=== PATIENT | female | born 1975 | race American Indian/Alaskan Native ===

== ENCOUNTER 2018-10-08 14:03 | Emergency (ER) | payer SELFPAY ==
--- NOTE | 2018-10-08 15:25 | Emergency Department Report ---
ED Recheck HPI - General Chief Complaint: High BP Stated Complaint: HIGH BLOOD PRESSURE Time Seen by Provider: 10/08/18 15:11 Source: patient Mode of arrival: Ambulatory Limitations: No Limitations - History of Present Illness Initial Comments: Ms. Garnett is a 43-year-old -[place] female who was sent to us from [facility] today for evaluation due to her blood pressure. It is reported that her blood pressure was 157/110 while they're getting a female examination. On arrival here patient's blood pressures 158/91. Patient was on HCTZ at one time which she stopped due to leg cramps. Then she was put on lisinopril which caused a severe cough so she stopped. At that point time she lost 30 pounds and had liposuction and had no further problems with her blood pressure. She has not noticed blood pressure to be high as of recently and has had no symptoms such as headache shortness of breath or chest pain. - Related Data Previous Rx's Medication Instructions Recorded Last Taken Type hydroCHLOROthiazide [HCTZ] 25 mg PO QDAY #30 tablet 10/08/18 Unknown Rx Allergies Allergy/AdvReac Type Severity Reaction Status Date / Time No Known Allergies Allergy Verified 10/08/18 14:38 ED Review of Systems ROS: Stated complaint: HIGH BLOOD PRESSURE Other details as noted in HPI Comment: All other systems reviewed and negative Constitutional: denies: chills Eyes: denies: eye pain ENT: denies: throat pain Respiratory: denies: cough, orthopnea Cardiovascular: as per HPI, other. denies: palpitations Endocrine: denies: flushing Gastrointestinal: denies: vomiting Genitourinary: denies: urgency Musculoskeletal: denies: back pain Skin: denies: rash Neurological: denies: headache Psychiatric: denies: anxiety Hematological/Lymphatic: denies: easy bleeding ED Past Medical Hx - Past Medical History Previous Medical History?: Yes (abated blood pressure without symptoms) Hx Hypertension: Yes - Surgical History Past Surgical History?: Yes Additional Surgical History: Lipo suction - Family History Family history: no significant - Social History Smoking Status: Never Smoker Substance Use Type: Marijuana - Medications Home Medications: Home Medications Medication Instructions Recorded Confirmed Last Taken Type hydroCHLOROthiazide [HCTZ] 25 mg PO QDAY #30 tablet 10/08/18 Unknown Rx ED Physical Exam - General Limitations: No Limitations General appearance: alert - Head Head exam: Present: atraumatic - Eye Eye exam: Present: normal appearance, PERRL Pupils: Present: normal accommodation - ENT ENT exam: Present: mucous membranes moist - Neck Neck exam: Present: normal inspection, full ROM - Respiratory Respiratory exam: Present: normal lung sounds bilaterally - Cardiovascular Cardiovascular Exam: Present: regular rate - GI/Abdominal GI/Abdominal exam: Present: soft, normal bowel sounds - Rectal Rectal exam: Present: deferred - Extremities Exam Extremities exam: Present: normal inspection, full ROM - Back Exam Back exam: Present: normal inspection, full ROM ED Course Vital Signs 10/08/18 14:31 Temperature 97.9 F Pulse Rate 78 Respiratory 18 Rate Blood Pressure 158/91 O2 Sat by Pulse 100 Oximetry ED Recheck MDM - Core Measures Measure Exclusions: not indicated - Medical Decision Making Lungs discussion with patient about her blood pressure. She is going to be started on HCTZ 25 mg daily. She will monitor her blood pressure every day keeping a journal. She will decrease her calories. She plans on using half an suite and sweet teat versus all sweet tea. Patient does not want and up on blood pressure medications at her age. Referrals will be given for primary care. Critical care attestation.: If time is entered above; I have spent that time in minutes in the direct care of this critically ill patient, excluding procedure time. ED Disposition Clinical Impression: HTN (hypertension) Disposition: - TO HOME OR SELFCARE Is pt being admited?: No Does the pt Need Aspirin: No Condition: Stable Instructions: DASH Eating Plan (ED), Hypertensive Crisis (ED), Hypertension (ED) Additional Instructions: HCTZ DAILY IN THE AM BP LOG DAILY SAME ARM SAME TIME OF DAY TAKE LOG TO PCP REFERRALS BELOW DIET WE DISCUSSED- ADDITION INFO IN THIS PACKET DRINK A LOT OF WATER EAT A BANANA EVERY DAY Referrals: DERRELL JEAN DO [Staff Physician] - 3-5 Days [facility] [Outside] - 3-5 Days [facility] [Outside] - 3-5 Days [facility] [Outside] - 3-5 Days Time of Disposition: 15:23
== END 2018-10-08 15:37 | disposition home or self-care (01) ==
LOC: ED 14:03
CPT/HCPCS: 99282